=== PATIENT | male | born 1965 | race Caucasian/White ===

== ENCOUNTER 2017-05-24 12:58 | Emergency (ER) | payer OTHER ==
[~2017-05-24] VITALS: Ht 190.5 cm; Wt 109.1 kg
[2017-05-24 13:00] VITALS: TEMP 98.9
[2017-05-24] MEDS ORDERED: GLUCOPHAGE500 MG/TAB PO (13:21)
[2017-05-24] MEDS ORDERED: GLUCOTROL 5M5 MG/TAB PO (13:22)
[2017-05-24] MEDS ORDERED: ASPIRIN 32325 MG/TAB PO (13:22)
[2017-05-24] MEDS ORDERED: NIACIN 64 MG-501 TA1 PO (13:22)
[2017-05-24] MEDS ORDERED: LIPITOR 10MG10 MG PO (13:22)
[2017-05-24] MEDS ORDERED: TRADJENTA5 MG PO (13:22)
[2017-05-24] MEDS ORDERED: NORVASC 10MG10 MG PO (13:22)
[2017-05-24] MEDS ORDERED: VITAMIND3 5000 PO (13:23)
[2017-05-24] MEDS ORDERED: CINNAMON500 MG PO (13:23)
[2017-05-24] MEDS ORDERED: PERCOCET 325 MG1 TA2 PO (15:36)
[2017-05-24 15:37] VITALS: BP 155/96; PULSE 71
== END 2017-05-24 15:43 | disposition home or self-care (01) ==
LOC: COL.ER 12:58
DX: S06.0X0A Concussion without loss of consciousness, initial encounter (principal); E11.9 Type 2 diabetes mellitus without complications; I10 Essential (primary) hypertension; F17.210 Nicotine dependence, cigarettes, uncomplicated; Z79.84 Long term (current) use of oral hypoglycemic drugs; Z79.82 Long term (current) use of aspirin; W01.10XA Fall on same level from slipping, tripping and stumbling with subsequent striking against unspecified object, initial encounter; Y92.009 Unspecified place in unspecified non-institutional (private) residence as the place of occurrence of the external cause